=== PATIENT | male | born 1980 | race Caucasian/White ===

== ENCOUNTER 2017-11-10 15:59 | Emergency (ER) | payer OTHER ==
[~2017-11-10] VITALS: Ht 208.3 cm; Wt 91.2 kg
[2017-11-10 16:29] LABS: ABSOLUTE LYMPHOCYTES 1.4 thou/uL (0.8-5.3); ABSOLUTE MONOCYTES 0.4 thou/uL (0.0-1.2); ABSOLUTE NEUTROPHILS 4.8 thou/uL (1.6-8.1); BASOPHILS 0.7 %; EOSINOPHILS 0.3 %; HEMATOCRIT 42.6 % (42.0-52.0); HEMOGLOBIN 14.7 gm/dL (14.0-18.0); LYMPHOCYTES 21.3 %; MCH 30.4 pg (26.0-34.0); MCHC 34.5 g/dL (28.0-37.0); MCV 88.2 fL (80.0-100.0); MONOCYTES 6.6 %; MPV 9.1 fl. (7.2-11.1); NUCLEATED RBCS 0 /100WBC; PLATELET COUNT* 268 thou/uL (150-400); POLYS 71.1 %; RBC 4.83 mil/uL (4.50-6.00); RDW-CV 13.7 % (10.5-14.5); WBC 6.8 thou/uL (4.0-11.0)
[2017-11-10 16:36] LABS: ANION GAP 11 mmol/L (7-16); BUN 21 mg/dL (7-18); CALCIUM 9.1 mg/dL (8.5-10.1); CHLORIDE 102 mmol/L (98-107); CO2 23 mmol/L (21-32); CREATININE 1.1 mg/dL (0.6-1.3); GLUCOSE 145 mg/dL (70-99); SODIUM 136 mmol/L (136-145)
[2017-11-10 16:39] LABS: APTT 24.7 Seconds (25.0-31.3); INR 1.1; PROTIME 10.8 Seconds (9.20-11.50)
[2017-11-10 16:52] LABS: ALBUMIN 3.6 g/dL (3.4-5.0); ALKALINE PHOSPHATASE 78 U/L (46-116); LIPASE 72 U/L (73-393); SGOT 16 U/L (15-37); SGPT 27 U/L (30-65); TOTAL BILIRUBIN 0.6 mg/dL (<0.1-1.0); TOTAL PROTEIN 7.2 g/dL (6.4-8.2); TROPONIN-I LEVEL <0.06 ng/mL (<0.06)
[2017-11-10 16:55] LABS: AMP/METHAMP Negative (Negative); BARBITURATES Negative (Negative); BENZODIAZEPINES Negative (Negative); COCAINE Negative (Negative); METHADONE Negative (Negative); OPIATES Negative (Negative); PCP Negative (Negative); THC POSITIVE (Negative)
[2017-11-10 16:56] LABS: URINE CLARITY CLEAR; URINE COLOR YELLOW
[2017-11-10 16:57] LABS: ICTOTEST (BILI CONFIRMATORY) Negative (Negative); URINE BILIRUBIN 1+ (Negative); URINE BLOOD NEGATIVE (Negative); URINE GLUCOSE-RANDOM NEGATIVE (Negative); URINE KETONES 1+ (Negative); URINE LEUKOCYTES-REFLEX NEGATIVE (Negative); URINE NITRITE-REFLEX NEGATIVE (Negative); URINE PROTEIN TRACE (Negative); URINE UROBILINOGEN 0.2 E.U./dl (0.2-1.0)
[2017-11-10 17:23] VITALS: BP 105/58
--- NOTE | 2017-11-11 12:31 | EKG ---
[place] [address] ELECTROCARDIOGRAM REPORT Name: FLYNN FOWLER Room: [facility]#: [id number] Admission: 11/10/17 Attend Phys: Discharge: 11/10/17 Date of : 82 Report #: [id number] THIS REPORT FOR: //name// [facility] ED Test Date: 2017-11-10 Test Time: 16:06:09 Pat Name: FLYNN FOWLER Department: Room: Gender: [facility] Director: Shan BLAS : 1980 Requested By: Ronald Ramírez Order Number: [id number] MD: Shreyas Morse Measurements Intervals [place] Rate: 94 P: 18 SC: 179 QRS: 18 QRSD: 107 T: 21 QT: 342 QTc: 428 Interpretive Statements Sinus rhythm Abnormal R-wave progression, early transition No previous ECG available for comparison Electronically Signed On 11-11-2017 12:30:52 CDT by Shreyas Morse [email or web address] <ELECTRONICALLY SIGNED> By: Shreyas Morse MD, [facility] 11/11/17 1230 160 05 Shreyas Morse MD, [facility] /EPI
== END 2017-11-10 17:24 | disposition home or self-care (01) ==
LOC: M.ERS 15:59
PROVIDERS: Family Medicine
DX: R42 Dizziness and giddiness (principal)